=== PATIENT | female | born 1960 | race Caucasian/White ===

== ENCOUNTER → 2016-07-09 | Outpatient (CLI) | payer OTHER ==
--- NOTE | 2016-07-09 15:38 | XR ---
EXAMINATION TYPE: XR foot limited RT DATE OF EXAM: 07/09/2016 3:33 PM CLINICAL HISTORY: Right foot pain for years. TECHNIQUE: Frontal, lateral, and oblique images of the right foot are obtained. COMPARISON: None FINDINGS: There is no acute fracture/dislocation evident in the right foot. There is marked flexion and varus positioning of distal third through fifth toes. There is mild hallux valgus positioning fir st metatarsophalangeal joint. There is severe spurring along dorsal surface tarsal navicular articula tion with the anterior talus. There is some spurring laterally at cuboid articulation with the calcan eus. Small to moderate size inferior calcaneal spur is present. The overlying soft tissue appears un remarkable. IMPRESSION: There is degenerative change in right foot as detailed above
== END | disposition home or self-care (01) ==
LOC: RADXRMAIN 15:19
PROVIDERS: ATTEND Family Medicine
DX: M25.871 Other specified joint disorders, right ankle and foot (principal); M79.671 Pain in right foot

== ENCOUNTER → 2016-10-07 | Outpatient (CLI) | payer OTHER ==
--- NOTE | 2016-10-08 09:15 | MM ---
Reason for exam: screening (asymptomatic). Last mammogram was performed 1 year and 2 months ago. History: Patient is postmenopausal and is nulliparous. Physical Findings: A clinical breast exam by your physician is recommended on an annual basis and results should be correlated with mammographic findings. MG Screening Mammo w CAD Bilateral CC and MLO view(s) were taken. Prior study comparison: August 07, 2015, bilateral MG screening mammo w CAD. There are scattered fibroglandular densities. There is no discrete abnormality. No significant changes when compared with prior studies. ASSESSMENT: Negative, BI-RAD 1 RECOMMENDATION: Routine screening mammogram of both breasts in 1 year.
== END | disposition home or self-care (01) ==
LOC: RADMAMWWP 10:41
PROVIDERS: ATTEND Family Medicine
DX: Z12.31 Encounter for screening mammogram for malignant neoplasm of breast (principal)

== ENCOUNTER 2018-04-25 23:58 | Observation (INO) | payer OTHER ==
[2018-04-26] MEDS ORDERED: ASPIRIN 81 MG PO STA (00:07)
[2018-04-26] MEDS ORDERED: SODIUM CHLORIDE 0.9% 1,000 ML IV STA (00:07)
[2018-04-26 00:46] LABS: Basophils % (A) 0 %; Eosinophils # (A) 0.1 k/uL (0-0.7); Eosinophils % (A) 1 %; HCT 37.2 % (34.0-46.0); HGB 12.1 gm/dL (11.4-16.0); Lymphocytes # (A) 1.1 k/uL (1.0-4.8); Lymphocytes % (A) 12 %; MCH 30.4 pg (25.0-35.0); MCHC 32.6 g/dL (31.0-37.0); MCV 93.2 fL (80.0-100.0); Mean Platelet Volume 8.1; Monocytes # (A) 0.3 k/uL (0-1.0); Monocytes % (A) 4 %; Neutrophils # (A) 7.9 k/uL (1.3-7.7); Neutrophils % (A) 82 %; Platelet Count 312 k/uL (150-450); RBC 3.99 m/uL (3.80-5.40); RDW 12.8 % (11.5-15.5); WBC 9.7 k/uL (3.8-10.6)
[2018-04-26 00:55] LABS: Anion Gap 9 mmol/L; Calcium 9.7 mg/dL (8.4-10.2); Carbon Dioxide 22 mmol/L (22-30); Chloride 110 mmol/L (98-107); Glucose 109 mg/dL (74-99); Sodium 141 mmol/L (137-145); Total Bilirubin 0.7 mg/dL (0.2-1.3); Total Protein 7.2 g/dL (6.3-8.2)
[2018-04-26] MEDS ORDERED: METOPROLOL TARTRATE 25 MG TAB PO STA (00:55)
--- NOTE | 2018-04-26 00:55 | ED ---
Arrhythmia/Palpitations HPI - General Chief Complaint: Arrhythmia/Palpitations Stated Complaint: Arrhythmia Time Seen by Provider: 04/26/18 00:00 Source: EMS Mode of arrival: EMS Limitations: no limitations - History of Present Illness Initial Comments: Cee is a 57-year-old female with a history of anxiety who presents the emergency department today via EMS after she contacted them concerned she was having an anxiety attack. Patient reports that on Wednesday she had a fall in which she fell to her left side and broke her hand. She subsequent followed up with orthopedics and had a cast placed on the left hand. Patient return to work today and does report that she is feeling quite exhausted. After work she was sitting in her car when she began to feel that her heart was racing. Patient thought she was having a panic attack but wouldn't subside so she called 911. EMS found the patient to have intermittent paroxysmal SVT with heart rates ranging from sinus rhythm with a rate in the 80s to SVT with a rate in the 180s. Patient's heart would begin to race she would take a deep breath or cough in her SVT would resolve. However happen intermittently during their assessment and transport to the hospital. Patient denies any chest pain or shortness of breath. The patient denies any previous cardiac history. - Related Data Home Medications Medication Instructions Recorded Confirmed Aspirin 650 mg PO DAILY PRN 08/19/15 08/19/15 [employer] Blood Builder 1 tab PO QAM 08/19/15 08/19/15 Multivitamins, Thera [Multivitamin] 1 tab PO QAM 08/19/15 08/19/15 Vits A,C,E/Lutein/Minerals 1 each PO QAM 08/19/15 08/19/15 [Ocuvite with Lutein Tablet] Allergies Allergy/AdvReac Type Severity Reaction Status Date / Time corn Allergy Anaphylaxis Verified 04/26/18 00:21 peanut Allergy Nausea & Verified 04/26/18 00:21 Vomiting & Diarrhea pollen extracts Allergy Rash/Hives Verified 04/26/18 00:21 ibuprofen AdvReac Unknown Verified 04/26/18 00:21 dust mites Allergy Rash/Hives Uncoded 04/26/18 00:21 wild rice Allergy Nausea & Uncoded 04/26/18 00:21 Vomiting & Diarrhea Review of Systems ROS Statement: Those systems with pertinent positive or pertinent negative responses have been documented in the HPI. ROS Other: All systems not noted in ROS Statement are negative. Past Medical History Past Medical History: No Reported History Additional Past Medical History / Comment(s): vertigo X 1 History of Any Multi-Drug Resistant Organisms: None Reported Past Surgical History: Appendectomy, Hysterectomy Additional Past Surgical History / Comment(s): sx: ganglion cyst & scar tissue removed from right hand Past Anesthesia/Blood Transfusion Reactions: Family History of Problems w/ Anesthesia Past Psychological History: Anxiety Smoking Status: Former smoker Past Alcohol Use History: Rare Past Drug Use History: None Reported - Past Family History Father Family Medical History: Cancer, Musculoskeletal Disorder, Neurologic Disorder Additional Family Medical History / Comment(s): CA: colon & leukemia (cll). parkinson Mother Family Medical History: Diabetes Mellitus, Osteoarthritis (OA) Additional Family Medical History / Comment(s): neuropathy. grandmother: brain cancer General Exam - General Exam Comments Initial Comments: Physical Exam GENERAL: Patient is well-developed and well-nourished. Patient is nontoxic and well- hydrated and is in no distress. HENT: Normocephalic, Atraumatic. EYES: PERRL, EOMI PULMONARY: Unlabored respirations. No audible rales rhonchi or wheezing was noted. CARDIOVASCULAR: There is a regular rate and rhythm without any murmurs gallops or rubs. ABDOMEN: Soft and nontender with normal bowel sounds. SKIN: Skin is clear with no lesions or rashes and otherwise unremarkable. : Deferred NEUROLOGIC: Patient is alert and oriented x3. Moving all extremities spontaneously MUSCULOSKELETAL: Left hand and thumb spica cast, fingers somewhat edematous patient reports that this is due to her noncompliance with her sling. She has normal neurovascular exam PSYCHIATRIC: Normal psychiatric evaluation. Limitations: no limitations Limitations: no limitations Course Vital Signs 04/26/18 04/26/18 00:03 01:38 Temperature 98.0 F Pulse Rate 97 84 Respiratory 16 16 Rate Blood Pressure 129/64 96/55 O2 Sat by Pulse 97 Oximetry EKG Findings - EKG Comments: EKG Findings:: EKG obtained at 12:12 AM, rate is 150 rhythm appears to be SVT, this is a narrow complex regular tachycardia which resolves and terminates into a sinus rhythm. Normal axis, ormal intervals, no acute ST elevations or depressions no evidence of acute ischemia or infarction. EKG obtained at 12:13 AM, rate is 99, rhythm is sinus there is noted be significant sinus arrhythmia with short 5 beats of apparent SVT. There is normal axis, normal intervals, VT 172, curettes 82, QTc is 431. In no acute ST elevations or depressions no evidence of ischemia or infarction. Rhythm strip obtained at 12:14 AM, rhythm strip is consistent with SVT with a rate of approximately 150-180 which terminates into a sinus rhythm. Medical Decision Making - Medical Decision Making Patient was seen and evaluated, patient was noted to have sinus rhythm with episodes of paroxysmal SVT which resolved spontaneously on the site monitor prior to arrival and at the time of arrival Labs and imaging were ordered By mouth metoprolol was ordered Labs with no significant abnormalities, no significant electrolyte L amount days , TSH within normal limits, troponin I not elevated Patient resting comfortably, results were discussed with patient advised patient of the plan for admission for evaluation by cardiology given that she did have a syncopal episode resulting in injury on Wednesday and is now having episodes of paroxysmal SVT. Patient is agreeable to this plan. Patient care was discussed with patient's primary care physician Dr. Clay who agrees with plan for admission with a consult to cardiology. - Lab Data Result diagrams: 04/26/18 00:29 04/26/18 00:29 Lab Results 04/26/18 04/26/18 04/26/18 Range/Units 00:29 00:29 00:29 WBC 9.7 (3.8-10.6) k/uL RBC 3.99 (3.80-5.40) m/uL Hgb 12.1 (11.4-16.0) gm/dL Hct 37.2 (34.0-46.0) % MCV 93.2 (80.0-100.0) fL MCH 30.4 (25.0-35.0) pg MCHC 32.6 (31.0-37.0) g/dL RDW 12.8 (11.5-15.5) % Plt Count 312 (150-450) k/uL Neutrophils % 82 % Lymphocytes % 12 % Monocytes % 4 % Eosinophils % 1 % Basophils % 0 % Neutrophils # 7.9 H (1.3-7.7) k/uL Lymphocytes # 1.1 (1.0-4.8) k/uL Monocytes # 0.3 (0-1.0) k/uL Eosinophils # 0.1 (0-0.7) k/uL Basophils # 0.0 (0-0.2) k/uL PT (9.0-12.0) sec INR (<1.2) APTT (22.0-30.0) sec Sodium 141 (137-145) mmol/L Potassium 4.6 (3.5-5.1) mmol/L Chloride 110 H (98-107) mmol/L Carbon Dioxide 22 (22-30) mmol/L Anion Gap 9 mmol/L BUN 20 H (7-17) mg/dL Creatinine 0.64 (0.52-1.04) mg/dL Est GFR (CKD-EPI)AfAm >90 (>60 ml/min/1.73 sqM) Est GFR (CKD-EPI)NonAf >90 (>60 ml/min/1.73 sqM) Glucose 109 H (74-99) mg/dL Calcium 9.7 (8.4-10.2) mg/dL Magnesium 1.9 (1.6-2.3) mg/dL Total Bilirubin 0.7 (0.2-1.3) mg/dL AST 29 (14-36) U/L ALT 21 (9-52) U/L Alkaline Phosphatase 72 (38-126) U/L Total Creatine Kinase 116 (30-135) U/L CK-MB (CK-2) 1.6 (0.0-2.4) ng/mL CK-MB (CK-2) Rel Index 1.4 Troponin I <0.012 (0.000-0.034) ng/mL Total Protein 7.2 (6.3-8.2) g/dL Albumin 4.0 (3.5-5.0) g/dL TSH 3.370 (0.465-4.680) mIU/L 04/26/18 Range/Units 00:29 WBC (3.8-10.6) k/uL RBC (3.80-5.40) m/uL Hgb (11.4-16.0) gm/dL Hct (34.0-46.0) % MCV (80.0-100.0) fL MCH (25.0-35.0) pg MCHC (31.0-37.0) g/dL RDW (11.5-15.5) % Plt Count (150-450) k/uL Neutrophils % % Lymphocytes % % Monocytes % % Eosinophils % % Basophils % % Neutrophils # (1.3-7.7) k/uL Lymphocytes # (1.0-4.8) k/uL Monocytes # (0-1.0) k/uL Eosinophils # (0-0.7) k/uL Basophils # (0-0.2) k/uL PT 10.5 (9.0-12.0) sec INR 1.0 (<1.2) APTT 22.5 (22.0-30.0) sec Sodium (137-145) mmol/L Potassium (3.5-5.1) mmol/L Chloride (98-107) mmol/L Carbon Dioxide (22-30) mmol/L Anion Gap mmol/L BUN (7-17) mg/dL Creatinine (0.52-1.04) mg/dL Est GFR (CKD-EPI)AfAm (>60 ml/min/1.73 sqM) Est GFR (CKD-EPI)NonAf (>60 ml/min/1.73 sqM) Glucose (74-99) mg/dL Calcium (8.4-10.2) mg/dL Magnesium (1.6-2.3) mg/dL Total Bilirubin (0.2-1.3) mg/dL AST (14-36) U/L ALT (9-52) U/L Alkaline Phosphatase (38-126) U/L Total Creatine Kinase (30-135) U/L CK-MB (CK-2) (0.0-2.4) ng/mL CK-MB (CK-2) Rel Index Troponin I (0.000-0.034) ng/mL Total Protein (6.3-8.2) g/dL Albumin (3.5-5.0) g/dL TSH (0.465-4.680) mIU/L Disposition Clinical Impression: Supraventricular tachycardia Disposition: ADMITTED IP TO THIS HOSP Referrals: Salo Clay MD [Primary Care Provider] - 1-2 days
[2018-04-26 00:57] LABS: Partial Thromboplastin Time 22.5 sec (22.0-30.0); Prothrombin Time 10.5 sec (9.0-12.0)
[2018-04-26 01:00] LABS: ALT 21 U/L (9-52); AST 29 U/L (14-36); Alkaline Phosphatase 72 U/L (38-126); Blood Urea Nitrogen 20 mg/dL (7-17); Magnesium 1.9 mg/dL (1.6-2.3); Potassium 4.6 mmol/L (3.5-5.1)
[2018-04-26 01:05] LABS: Creatine Kinase 116 U/L (30-135)
--- NOTE | 2018-04-26 01:07 | XR ---
EXAMINATION TYPE: XR chest 2V DATE OF EXAM: 04/26/2018 COMPARISON: NONE HISTORY: Chest pain TECHNIQUE: Frontal and lateral views of the chest are obtained. FINDINGS: There is no heart failure nor confluent pneumonic infiltrate. Costophrenic angles are tameka r. There are chest leads. The bony thorax is intact. IMPRESSION: No active cardiopulmonary disease. Normal heart.
[2018-04-26 01:19] LABS: Creatine Kinase MB 1.6 ng/mL (0.0-2.4)
[2018-04-26 01:21] LABS: Troponin I <0.012 ng/mL (0.000-0.034)
[2018-04-26] MEDS ORDERED: NALOXONE 0.4 MG/ML 1 ML VIAL IV PRN (02:10)
[2018-04-26 07:22] LABS: Creatine Kinase 76 U/L (30-135)
[2018-04-26 07:35] LABS: Creatine Kinase MB 1.2 ng/mL (0.0-2.4); Troponin I <0.012 ng/mL (0.000-0.034)
--- NOTE | 2018-04-26 10:35 | CONS ---
CONSULTATION CHIEF COMPLAINT: Near syncope. Cee is a 57-year-old lady with no significant past medical history who presented to hospital with symptoms of dizziness and not feeling well. This started yesterday morning. She continued to work. She felt unwell, had almost felt like she was going to have an anxiety attack. Patient had a fall and broke her left arm last week, but this was not a syncopal event. When she presented to the ER, she was in SVT with heart rates in the 180s, which gradually resolved on its own. At the time of my evaluation, she is in sinus rhythm and is free of significant cardiac symptoms. PAST MEDICAL HISTORY: Negative for hypertension, diabetes, dyslipidemia. MEDICATIONS: None. ALLERGIES: As charted. FAMILY HISTORY: Significant for CAD in her mother. SOCIAL HISTORY: Negative for smoking, EtOH abuse or drug abuse. REVIEW OF SYSTEMS: HEENT is unremarkable. Cardiac as described above. RESPIRATORY: Negative. GI: Negative. GENITOURINARY: Negative. ALLERGY/IMMUNOLOGY: Negative. SKIN: Negative. MUSCULOSKELETAL: Negative. ENDOCRINE: Negative. DERMATOLOGICAL: Negative. CONSTITUTIONAL Negative. ONCOLOGICAL: Negative. The rest of the system review is not relevant. PHYSICAL EXAM: Patient is comfortable at rest. Afebrile. Vital signs are stable. There is no jugular venous distention. Chest exam reveals good air entry bilaterally. Heart exam reveals first and second heart sounds. No gallop. No murmur. Abdomen is soft, nontender. Exam of extremities did not reveal any edema. Peripheral pulses are felt. 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 LABS: Show a hemoglobin of 12.1, platelet count is 312. Potassium is 4.6, creatinine is 0.62. Two sets of troponins are negative. TSH is 3.3. ASSESSMENT: Paroxysmal supraventricular tachycardia. PLAN: Patient is in normal sinus rhythm. I will obtain a 2D echo. If the LV function is normal, patient can be discharged home. I am not going to put her on a beta gracy as her blood pressures are somewhat low. I will re-evaluate her in my office after discharge and decide on further course of action. I talked to her about referral for EP and possible ablation. Will have more discussions about this later. MMODL / IJN: [id number] /
[2018-04-26 13:00] LABS: Creatine Kinase 183 U/L (30-135)
[2018-04-26 13:13] LABS: Creatine Kinase MB 4.3 ng/mL (0.0-2.4); Troponin I <0.012 ng/mL (0.000-0.034)
[2018-04-26 21:08] LABS: Glucose,Whole Blood 91 mg/dL (75-99)
[2018-04-27 04:58] VITALS: RESP 16
[2018-04-27 06:54] LABS: Appearance,Urine Clear (Clear); Bilirubin,Urine Negative (Negative); Blood,Urine Negative (Negative); Color,Urine Light Yellow; Glucose,Urine (UA) Negative (Negative); Ketones,Urine Negative (Negative); Leukocyte Esterase,Urine Negative (Negative); Mucus,Urine Rare /hpf; Nitrite,Urine Negative (Negative); Protein,Urine Negative (Negative); RBC,Urine <1 /hpf (0-5); Specific Gravity,Urine 1.004 (1.001-1.035); Urobilinogen,Urine <2.0 mg/dL (<2.0); WBC,Urine <1 /hpf (0-5)
[2018-04-27 08:44] VITALS: TEMP 97.4
[2018-04-27] MEDS ORDERED: ASPIRIN 325 MG TAB PO SCH (09:00)
--- NOTE | 2018-04-27 09:21 | ECHOF ---
Referral Reason:SVT MEASUREMENTS -------- HEIGHT: 165.1 cm WEIGHT: 73.5 kg BP: 90/66 RVIDd: 2.7 cm (< 3.3) IVSd: 0.9 cm (0.6 - 1.1) LVIDd: 4.7 cm (3.9 - 5.3) LVPWd: 0.8 cm (0.6 - 1.1) IVSs: 1.2 cm LVIDs: 3.1 cm LVPWs: 1.2 cm Ao Diam: 3.3 cm (2.0 - 3.7) AV Cusp: 2.4 cm (1.5 - 2.6) LA Diam: 3.1 cm (2.7 - 3.8) EPSS: 0.3 cm MV E Dejan: 0.72 m/s MV DecT: 205 ms MV A Dejan: 0.48 m/s MV E/A Ratio: 1.50 RAP: 5.00 mmHg RVSP: 19.02 mmHg MV EF SLOPE: 148.13 mm/s (70 - 150) MV EXCURSION: 2.22 cm (> 18.000) FINDINGS -------- Sinus rhythm. This was a technically difficult study with suboptimal views. The left ventricular size is normal. Left ventricular wall thickness is normal. Overall left vent ricular systolic function is normal with, an EF between 55 - 60 %. The right ventricle is normal in size and function. Normal LA size by volume 22+/-6 ml/m2. The right atrium is normal in size. 3 ml of Lumason was utilized for enhancement of images. Aortic valve is trileaflet and is mildly thickened. There is no evidence of aortic regurgitation. There is no evidence of aortic stenosis. The mitral valve leaflets are mildly thickened. There is trace to mild mitral regurgitation. Trace tricuspid regurgitation present. Right ventricular systolic pressure is normal at < 35 mmHg. There is no evidence of pulmonary hypertension. Trace/mild (physiologic) pulmonic regurgitation. The aortic root size is normal. Normal inferior vena cava with normal inspiratory collapse consistent with estimated right atrial pre ssure of 5 mmHg. There is no pericardial effusion. CONCLUSIONS -------- 1. Sinus rhythm. 2. This was a technically difficult study with suboptimal views. 3. The left ventricular size is normal. 4. Left ventricular wall thickness is normal. 5. Overall left ventricular systolic function is normal with, an EF between 55 - 60 %. 6. Normal LA size by volume 22+/-6 ml/m2. 7. 3 ml of Lumason was utilized for enhancement of images. 8. Aortic valve is trileaflet and is mildly thickened. 9. The mitral valve leaflets are mildly thickened. 10. There is trace to mild mitral regurgitation. 11. Trace tricuspid regurgitation present. 12. Right ventricular systolic pressure is normal at < 35 mmHg. 13. There is no evidence of pulmonary hypertension. 14. Trace/mild (physiologic) pulmonic regurgitation. 15. The aortic root size is normal. 16. There is no pericardial effusion. RESOURCE ENGINEER: Alen Wu RDCS
[2018-04-27 11:44] VITALS: BP 96/67; PULSE 78
[2018-04-27] MEDS ORDERED: METOPROLOL SUCCINATE (ER) 25 MG TAB.ER.24H PO SCH (12:15)
--- NOTE | 2018-04-27 12:18 | P.PN ---
Subjective Progress Note Date: 04/27/18 This is a 57-year-old patient with no significant past medical history presented to the hospital with symptoms of dizziness and generally not feeling well. She was seen in consultation yesterday by Dr. Ro, in the emergency room patient was in SVT with a heart rate in the 180s which collaterally resolved on its own, she has remained since in normal sinus rhythm. Patient has no prior history of hypertension, no diabetes. She is a nonsmoker. Time of my examination this morning, she remains in a normal sinus rhythm. Blood pressure 100/60 with a heart rate in the 70s. Objective - Vital Signs Vital signs: Vital Signs Temp 97.4 F L 04/27/18 08:35 Pulse 78 04/27/18 11:30 Resp 16 04/27/18 11:30 BP 96/67 04/27/18 11:30 Pulse Ox 97 04/27/18 11:30 Intake & Output 04/26/18 04/27/18 04/27/18 18:59 06:59 18:59 Intake Total 340 20 240 Output Total 1 900 Balance 339 -880 240 Weight 75.3 kg Intake: IV 20 0.9 20 Oral 340 240 Output: Urine 1 900 Other: # Voids 2 - Exam PHYSICAL EXAMINATION: GENERAL: 57-year-old female in no acute distress at the time of my examination HEENT: Head is atraumatic, normocephalic. Pupils equal, round. Sclera anicteric. Conjunctiva are clear. Mucous membranes of the mouth are moist. Neck is supple. There is no elevated jugular venous pressure. No carotid bruit is heard. HEART EXAMINATION: Heart S1, S2 normal. No murmur or gallop heard. CHEST EXAMINATION: Lungs are clear to auscultation and precussion. No chest wall tenderness is noted on palpation or with deep breathing. ABDOMEN: Soft, nontender. Bowel sounds are heard. No organomegaly noted. EXTREMITIES: 2+ peripheral pulses with no evidence of peripheral edema and no calf tenderness noted. NEUROLOGIC patient is awake, alert and oriented 3 . . - Labs CBC & Chem 7: 04/26/18 00:29 04/26/18 00:29 Labs: Abnormal Lab Results - Last 24 Hours (Table) 04/26/18 04/27/18 Range/Units 12:04 01:30 Total Creatine Kinase 183 H (30-135) U/L CK-MB (CK-2) 4.3 H (0.0-2.4) ng/mL Urine Mucus Rare H (None) /hpf Microbiology - Last 24 Hours (Table) 04/27/18 01:30 Urine Culture - Preliminary Urine,Voided Assessment and Plan Plan: Assessment and plan #1 supraventricular tachycardia, echo revealed a normal left ventricular systolic function. #2 cardiac risk factors negative for hypertension, no diabetes, no hyperlipidemia, nonsmoker. Plan From cardiology's perspective, patient may be able to be discharged home today. We will start her on some Toprol XL today, make a follow-up appointment to see Dr. Ro back in the office in 4 weeks. DNP note has been reviewed, I agree with a documented findings and plan of care. Patient was seen and examined.
--- NOTE | 2018-04-27 14:49 | HP ---
HISTORY AND PHYSICAL CHIEF COMPLAINT: A 57-year-old white female who came in to the emergency room, thought she was having an anxiety attack. She was found to have severe SVT for which was treated in the emergency room. She is admitted for monitoring. Home medicines include just vitamins. Allergies are to foods and DUST MITES with RICE, IBUPROFEN, PEANUTS, CORN. PAST MEDICAL HISTORY: History of vertigo, anxiety. A 14-point review of systems negative except for mentioned in HPI. SURGERY: Scar removed from her right hand. No smoking. No illicit drugs. FAMILY HISTORY: Father with cancer, musculoskeletal neurologic disorder, colon cancer, leukemia, Parkinson's. Mother diabetes mellitus, osteoarthritis. PHYSICAL EXAM: VITAL SIGNS: Stable. Status post SVT treatment/ CARDIOVASCULAR: Possible low blood pressure, systolic is in the 90s in the emergency room. HEAD: Normocephalic, atraumatic. Pupils equal, round, reactive to light. LUNGS: Clear. CARDIOVASCULAR: S1, S2. ABDOMEN: Soft. HEMATOLOGY: Negative Homans. SKIN: Warm and dry. NEUROLOGIC: Alert and orient x3. PSYCH: Fair mood and affect. Temp is 98 as mentioned, O2 saturation at 97, respiratory rate 16 to 18. ASSESSMENT: 1. Supraventricular tachycardia, status post treatment, anxiety, possible low-dose beta gracy if blood pressure will allow us to use it to prevent further recurrences. Otherwise, Cardiology will need to see the patient prior to clearance prior to discharge. 2. Thyroid is in normal range. Please see further orders. MMODL / IJN: [id number] /
== END 2018-04-27 13:59 | disposition home or self-care (01) ==
LOC: EC 23:58 → INTOOBSV 04-26 02:10 → 3SCARD 04-26 02:10 → UNDODISIN 04-27 13:59
PROVIDERS: ADMIT Family Medicine; ATTEND Family Medicine
DX: I47.1 Supraventricular tachycardia (principal); F41.9 Anxiety disorder, unspecified; S62.92XD Unspecified fracture of left hand, subsequent encounter for fracture with routine healing; W19.XXXD Unspecified fall, subsequent encounter; Z79.82 Long term (current) use of aspirin; Z79.899 Other long term (current) drug therapy; Z91.010 Allergy to peanuts; Z88.6 Allergy status to analgesic agent; Z91.048 Other nonmedicinal substance allergy status; Z91.018 Allergy to other foods; Z87.891 Personal history of nicotine dependence; Z90.49 Acquired absence of other specified parts of digestive tract; Z90.710 Acquired absence of both cervix and uterus; Z80.0 Family history of malignant neoplasm of digestive organs; Z80.6 Family history of leukemia; Z80.8 Family history of malignant neoplasm of other organs or systems; Z82.0 Family history of epilepsy and other diseases of the nervous system; Z82.49 Family history of ischemic heart disease and other diseases of the circulatory system; Z83.3 Family history of diabetes mellitus; Z82.61 Family history of arthritis; Z82.69 Family history of other diseases of the musculoskeletal system and connective tissue
CPT/HCPCS: 96360; 96361; 99285; 36415; 93005; 80053; 82550; 82553; 83735; 84443; 84484; 85025; 85610; 85730; 81003; 87086; 71046; G0378 ×2; C8929; Q9950; 93306

== ENCOUNTER 2018-05-22 11:49 | Emergency (ER) | payer OTHER ==
[2018-05-22] MEDS ORDERED: SODIUM CHLORIDE 0.9% 1,000 ML IV STA (12:05)
--- NOTE | 2018-05-22 12:15 | ED ---
General Adult HPI - General Chief complaint: Arrhythmia/Palpitations Stated complaint: Tachycardia Time Seen by Provider: 05/22/18 12:01 Source: patient Mode of arrival: EMS - Related Data Previous Rx's Medication Instructions Recorded Metoprolol Succinate (ER) [Toprol 12.5 mg PO DAILY #30 tab.er.24h 04/27/18 XL] Allergies Allergy/AdvReac Type Severity Reaction Status Date / Time corn Allergy Anaphylaxis Verified 05/22/18 12:31 peanut Allergy Nausea & Verified 05/22/18 12:31 Vomiting & Diarrhea pollen extracts Allergy Rash/Hives Verified 05/22/18 12:31 ibuprofen AdvReac Unknown Verified 05/22/18 12:31 dust mites Allergy Rash/Hives Uncoded 04/26/18 00:21 wild rice Allergy Nausea & Uncoded 04/26/18 00:21 Vomiting & Diarrhea Review of Systems ROS Statement: Those systems with pertinent positive or pertinent negative responses have been documented in the HPI. ROS Other: All systems not noted in ROS Statement are negative. Past Medical History Past Medical History: No Reported History, GERD/Reflux, Osteoarthritis (OA) Additional Past Medical History / Comment(s): Current L hand fracture/casted, arthritis multiple joints, vertigo, high cholesterol which she states she corrected with diet, diverticular disease, pt states she has been told she has a predisposition to glaucoma. History of Any Multi-Drug Resistant Organisms: None Reported Past Surgical History: Appendectomy, Hysterectomy Additional Past Surgical History / Comment(s): R hand ganglion cyst & scar tissue removed, colonoscopy with benign polypectomy Past Anesthesia/Blood Transfusion Reactions: No Reported Reaction Past Psychological History: Anxiety Smoking Status: Former smoker Past Alcohol Use History: None Reported Past Drug Use History: None Reported - Past Family History Father Family Medical History: Cancer, Musculoskeletal Disorder, Neurologic Disorder Additional Family Medical History / Comment(s): CA: colon & leukemia (cll). parkinson Mother Family Medical History: Diabetes Mellitus, Osteoarthritis (OA) Additional Family Medical History / Comment(s): grandmother: brain cancer Course Vital Signs 05/22/18 05/22/18 05/22/18 11:58 11:59 12:00 Temperature 98.8 F Pulse Rate 70 67 68 Pulse Rate [ Director Communications ] Respiratory 16 18 9 L Rate Blood Pressure 118/79 118/79 O2 Sat by Pulse 95 86 L Oximetry 05/22/18 05/22/18 05/22/18 12:30 12:42 13:00 Temperature Pulse Rate 68 76 Pulse Rate [ 74 Director Communications ] Respiratory 8 L 17 Rate Blood Pressure 118/79 118/79 O2 Sat by Pulse 100 Oximetry 05/22/18 05/22/18 05/22/18 13:30 14:00 14:30 Temperature Pulse Rate 61 65 Pulse Rate [ Director Communications ] Respiratory 15 11 L Rate Blood Pressure 100/66 95/68 118/71 O2 Sat by Pulse 100 100 Oximetry 05/22/18 14:35 Temperature Pulse Rate 63 Pulse Rate [ Director Communications ] Respiratory 18 Rate Blood Pressure 118/71 O2 Sat by Pulse 97 Oximetry Medical Decision Making - Medical Decision Making Dictation was produced using [employer] dictation software. please excuse any grammatical, word or spelling errors. Chief Complaint: 57-year-old female presents with palpitations. History of Present Illness: Patient is a 57-year-old female past medical history of paroxysmal supraventricular tachycardia. Patient states she was at [employer] today when at approximately 10 AM patient began noticing symptoms of palpitations. Patient has history of SVT in the past. She does not take any medications for this. She's been instructed to seek medical attention if her symptoms last more than 20 minutes. Patient states she gets this when she is stressed out or upset. Denies any other symptoms at this time. EMS was called. Patient was still tachycardic while under their care. ROS documented in this emergency department record has been reviewed and confirmed by me. Those systems with pertinent positive or negative responses have been documented in the HPI. All other systems are other negative and/or noncontributory. PHYSICAL EXAM: General Impression: Alert and oriented x3, not in acute distress HEENT: Normocephalic atraumatic, extra-ocular movements intact, pupils equal and reactive to light bilaterally, mucous membranes moist. Cardiovascular: Heart regular rate and rhythm, S1&S2 audible, no murmurs, rubs or gallops Chest: Lungs clear to auscultation bilaterally, no rhonchi, no wheeze, no rales Abdomen: Bowel sounds present, abdomen soft, non-tender, non-distended, no organomegaly Musculoskeletal: Pulses present and equal in all extremities, no peripheral edema Motor: Power 5/5 bilaterally, no focal deficits noted Neurological: CN II-XII grossly intact, no focal motor or sensory deficits noted Skin: Intact with no visualized rashes Psych: Normal affect and mood ED course: 57-year-old female past medical history of SVT presents with chief complaint palpitations. Vital signs upon arrival are within except limits. Patient does not appear to be in SVT upon initial evaluation. Prehospital EKG was evaluated showing findings consistent with supraventricular tachycardia. Laboratory evaluation obtained. CBC unremarkable. Coag panel unremarkable. Metabolic panel is unremarkable. No electrolyte derangement. Urinalysis is positive for trace ketones. Patient given intravenous fluids. Patient's episode of SVT is likely caused by dehydration. Patient urged of the significance of maintaining adequate hydration. The patient is a Dr. Orr who agrees that patient's clear for discharge. Patient told to continue her Toprol-XL. She may be a candidate for different antiarrhythmic that can be changed outpatient. Discussed the plan with patient who is understandable and agreeable. EKG interpretation: Ventricular rate 77, normal sinus rhythm, MA interval 136, QRS 92, QTc 437. No MA prolongation, no QTC prolongation, no ST or T-wave changes noted. . Overall, this EKG is unremarkable - Lab Data Result diagrams: 05/22/18 12:06 05/22/18 12:06 Lab Results 05/22/18 05/22/18 05/22/18 Range/Units 12:06 12:06 12:06 WBC 4.5 (3.8-10.6) k/uL RBC 3.87 (3.80-5.40) m/uL Hgb 12.3 (11.4-16.0) gm/dL Hct 35.6 (34.0-46.0) % MCV 92.1 (80.0-100.0) fL MCH 31.8 (25.0-35.0) pg MCHC 34.5 (31.0-37.0) g/dL RDW 12.8 (11.5-15.5) % Plt Count 229 (150-450) k/uL Neutrophils % 67 % Lymphocytes % 25 % Monocytes % 4 % Eosinophils % 2 % Basophils % 0 % Neutrophils # 3.0 (1.3-7.7) k/uL Lymphocytes # 1.1 (1.0-4.8) k/uL Monocytes # 0.2 (0-1.0) k/uL Eosinophils # 0.1 (0-0.7) k/uL Basophils # 0.0 (0-0.2) k/uL PT (9.0-12.0) sec INR (<1.2) APTT (22.0-30.0) sec Sodium 140 (137-145) mmol/L Potassium 4.3 (3.5-5.1) mmol/L Chloride 106 (98-107) mmol/L Carbon Dioxide 23 (22-30) mmol/L Anion Gap 11 mmol/L BUN 17 (7-17) mg/dL Creatinine 0.60 (0.52-1.04) mg/dL Est GFR (CKD-EPI)AfAm >90 (>60 ml/min/1.73 sqM) Est GFR (CKD-EPI)NonAf >90 (>60 ml/min/1.73 sqM) Glucose 102 H (74-99) mg/dL Calcium 9.6 (8.4-10.2) mg/dL Magnesium 1.8 (1.6-2.3) mg/dL Total Bilirubin 0.6 (0.2-1.3) mg/dL AST 22 (14-36) U/L ALT 20 (9-52) U/L Alkaline Phosphatase 78 (38-126) U/L Total Creatine Kinase 128 (30-135) U/L CK-MB (CK-2) 1.3 (0.0-2.4) ng/mL CK-MB (CK-2) Rel Index 1.0 Troponin I <0.012 (0.000-0.034) ng/mL Total Protein 7.5 (6.3-8.2) g/dL Albumin 4.4 (3.5-5.0) g/dL TSH 2.270 (0.465-4.680) mIU/L Urine Color Urine Appearance (Clear) Urine pH (5.0-8.0) Ur Specific [place] (1.001-1.035) Urine Protein (Negative) Urine Glucose (UA) (Negative) Urine Ketones (Negative) Urine Blood (Negative) Urine Nitrite (Negative) Urine Bilirubin (Negative) Urine Urobilinogen (<2.0) mg/dL Ur Leukocyte Esterase (Negative) Urine RBC (0-5) /hpf Urine WBC (0-5) /hpf Ur Squamous Epith Cells (0-4) /hpf Urine Mucus (None) /hpf 05/22/18 05/22/18 Range/Units 12:06 14:25 WBC (3.8-10.6) k/uL RBC (3.80-5.40) m/uL Hgb (11.4-16.0) gm/dL Hct (34.0-46.0) % MCV (80.0-100.0) fL MCH (25.0-35.0) pg MCHC (31.0-37.0) g/dL RDW (11.5-15.5) % Plt Count (150-450) k/uL Neutrophils % % Lymphocytes % % Monocytes % % Eosinophils % % Basophils % % Neutrophils # (1.3-7.7) k/uL Lymphocytes # (1.0-4.8) k/uL Monocytes # (0-1.0) k/uL Eosinophils # (0-0.7) k/uL Basophils # (0-0.2) k/uL PT 10.3 (9.0-12.0) sec INR 1.0 (<1.2) APTT 23.1 (22.0-30.0) sec Sodium (137-145) mmol/L Potassium (3.5-5.1) mmol/L Chloride (98-107) mmol/L Carbon Dioxide (22-30) mmol/L Anion Gap mmol/L BUN (7-17) mg/dL Creatinine (0.52-1.04) mg/dL Est GFR (CKD-EPI)AfAm (>60 ml/min/1.73 sqM) Est GFR (CKD-EPI)NonAf (>60 ml/min/1.73 sqM) Glucose (74-99) mg/dL Calcium (8.4-10.2) mg/dL Magnesium (1.6-2.3) mg/dL Total Bilirubin (0.2-1.3) mg/dL AST (14-36) U/L ALT (9-52) U/L Alkaline Phosphatase (38-126) U/L Total Creatine Kinase (30-135) U/L CK-MB (CK-2) (0.0-2.4) ng/mL CK-MB (CK-2) Rel Index Troponin I (0.000-0.034) ng/mL Total Protein (6.3-8.2) g/dL Albumin (3.5-5.0) g/dL TSH (0.465-4.680) mIU/L Urine Color Light Yellow Urine Appearance Clear (Clear) Urine pH 5.0 (5.0-8.0) Ur Specific [place] 1.007 (1.001-1.035) Urine Protein Negative (Negative) Urine Glucose (UA) Negative (Negative) Urine Ketones Trace H (Negative) Urine Blood Moderate H (Negative) Urine Nitrite Negative (Negative) Urine Bilirubin Negative (Negative) Urine Urobilinogen <2.0 (<2.0) mg/dL Ur Leukocyte Esterase Trace H (Negative) Urine RBC 1 (0-5) /hpf Urine WBC 1 (0-5) /hpf Ur Squamous Epith Cells 1 (0-4) /hpf Urine Mucus Rare H (None) /hpf Disposition Clinical Impression: Supraventricular tachycardia Disposition: HOME SELF-CARE Condition: Good Instructions (If sedation given, give patient instructions): Heart Palpitations (ED) Is patient prescribed a controlled substance at d/c from ED?: No Referrals: Salo Clay MD [Primary Care Provider] - 1-2 days Juan R Olivarez MD [STAFF PHYSICIAN] - 1-2 days Time of Disposition: 15:36
[2018-05-22 12:42] LABS: Basophils % (A) 0 %; Eosinophils # (A) 0.1 k/uL (0-0.7); Eosinophils % (A) 2 %; HCT 35.6 % (34.0-46.0); HGB 12.3 gm/dL (11.4-16.0); Lymphocytes # (A) 1.1 k/uL (1.0-4.8); Lymphocytes % (A) 25 %; MCH 31.8 pg (25.0-35.0); MCHC 34.5 g/dL (31.0-37.0); MCV 92.1 fL (80.0-100.0); Mean Platelet Volume 8.1; Monocytes # (A) 0.2 k/uL (0-1.0); Monocytes % (A) 4 %; Neutrophils % (A) 67 %; Platelet Count 229 k/uL (150-450); RBC 3.87 m/uL (3.80-5.40); RDW 12.8 % (11.5-15.5); WBC 4.5 k/uL (3.8-10.6)
[2018-05-22 12:55] LABS: ALT 20 U/L (9-52); AST 22 U/L (14-36); Albumin 4.4 g/dL (3.5-5.0); Alkaline Phosphatase 78 U/L (38-126); Anion Gap 11 mmol/L; Blood Urea Nitrogen 17 mg/dL (7-17); Calcium 9.6 mg/dL (8.4-10.2); Carbon Dioxide 23 mmol/L (22-30); Chloride 106 mmol/L (98-107); Glucose 102 mg/dL (74-99); Magnesium 1.8 mg/dL (1.6-2.3); Partial Thromboplastin Time 23.1 sec (22.0-30.0); Potassium 4.3 mmol/L (3.5-5.1); Prothrombin Time 10.3 sec (9.0-12.0); Sodium 140 mmol/L (137-145); Total Bilirubin 0.6 mg/dL (0.2-1.3); Total Protein 7.5 g/dL (6.3-8.2)
--- NOTE | 2018-05-22 12:56 | XR ---
EXAMINATION TYPE: XR chest 2V DATE OF EXAM: 05/22/2018 COMPARISON: 04/26/2018 HISTORY: Shortness of breath TECHNIQUE: Frontal and lateral views of the chest are obtained. FINDINGS: Scattered senescent parenchymal changes noted. No evidence for infiltrate. No evidence for atelectasis. Heart size is stable. Mediastinal structures are stable and grossly unremarkable. No evidence for hilar prominence. Degenerative changes dorsal spine. IMPRESSION: 1. No evidence for acute pulmonary disease.
[2018-05-22 13:06] LABS: Creatine Kinase 128 U/L (30-135)
[2018-05-22 13:19] LABS: Creatine Kinase MB 1.3 ng/mL (0.0-2.4); Troponin I <0.012 ng/mL (0.000-0.034)
[2018-05-22 14:49] LABS: Appearance,Urine Clear (Clear); Bilirubin,Urine Negative (Negative); Blood,Urine Moderate (Negative); Color,Urine Light Yellow; Glucose,Urine (UA) Negative (Negative); Ketones,Urine Trace (Negative); Leukocyte Esterase,Urine Trace (Negative); Mucus,Urine Rare /hpf; Nitrite,Urine Negative (Negative); Protein,Urine Negative (Negative); RBC,Urine 1 /hpf (0-5); Specific Gravity,Urine 1.007 (1.001-1.035); Squamous Epithelial Cell,Urine 1 /hpf (0-4); Urobilinogen,Urine <2.0 mg/dL (<2.0)
[2018-05-22 15:50] VITALS: BP 105/69; PULSE 64; RESP 16; TEMP 98.1
== END 2018-05-22 16:26 | disposition home or self-care (01) ==
LOC: EC 11:49
DX: I47.1 Supraventricular tachycardia (principal); Z79.899 Other long term (current) drug therapy; Z91.010 Allergy to peanuts; Z91.018 Allergy to other foods; Z88.6 Allergy status to analgesic agent; Z91.09 Other allergy status, other than to drugs and biological substances; Z87.891 Personal history of nicotine dependence
CPT/HCPCS: 36415; 71046; 80053; 81001; 82550; 82553; 83735; 84443; 84484; 85025; 85610; 85730; 93005; 96360; 96361; 99285

== ENCOUNTER 2019-05-07 10:35 | Emergency (ER) | payer OTHER ==
[2019-05-07] MEDS ORDERED: ACETAMINOPHEN TAB 500 MG TAB PO STA (10:50)
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
[2019-05-07 11:00] VITALS: RESP 20
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
[2019-05-07 12:55] VITALS: BP 103/77; PULSE 65; TEMP 99
== END 2019-05-07 12:49 | disposition home or self-care (01) ==
LOC: EC 10:35
DX: S39.012A Strain of muscle, fascia and tendon of lower back, initial encounter (principal); Z87.891 Personal history of nicotine dependence; Z91.010 Allergy to peanuts; Z91.018 Allergy to other foods; Z91.048 Other nonmedicinal substance allergy status; Z88.6 Allergy status to analgesic agent; V89.2XXA Person injured in unspecified motor-vehicle accident, traffic, initial encounter; Y92.410 Unspecified street and highway as the place of occurrence of the external cause
CPT/HCPCS: 72110; 72170; 99284

== ENCOUNTER → 2021-09-11 | Outpatient (CLI) | payer OTHER ==
--- NOTE | 2021-09-12 14:47 | MM ---
Reason for Exam: Screening (asymptomatic). Last mammogram was performed 4 year(s) and 11 month(s) ago. Patient History: Menarche at age 9. Patient has no children. Hysterectomy at age 45. Postmenopausal. Patient used Unspecified Hormone for 5 years. Risk Values: Inez 5 year model risk: 1.9%. NCI Lifetime model risk: 8.1%. Film Views: Bilateral CC views were taken. Bilateral MLO views were taken. Prior Study Comparison: 08/07/2015 Bilateral Screening Mammogram, [facility]. 10/07/2016 Bilateral Screening Mammogram, [facility]. Tissue Density: There are scattered fibroglandular densities. Findings: Analyzed By CAD. Asymmetric density is present in the upper aspect of the middle portion of the right breast seen better on the mediolateral oblique view, approximately 7 cm from the nipple. Overall Assessment: Incomplete: need additional imaging evaluation, BI-RAD 0 Management: Diagnostic Breast Ultrasound of the right breast. A clinical breast exam by your physician is recommended on an annual basis and results should be correlated with mammographic findings. Electronically signed and approved by: Ajay Ogden M.D. Radiologis
== END | disposition home or self-care (01) ==
LOC: RADMAMWWP 09:27
DX: Z12.31 Encounter for screening mammogram for malignant neoplasm of breast (principal); Z78.0 Asymptomatic menopausal state
CPT/HCPCS: 77067

== ENCOUNTER → 2021-09-17 | Outpatient (CLI) | payer OTHER ==
--- NOTE | 2021-09-17 15:28 | USB ---
Reason for Exam: Additional evaluation requested from abnormal screening. Patient History: Menarche at age 9. Patient has no children. Hysterectomy at age 45. Postmenopausal. Patient used Unspecified Hormone for 5 years. Risk Values: Inez 5 year model risk: 1.9%. NCI Lifetime model risk: 8.1%. Technique: Method: Targeted. Prior Study Comparison: 08/07/2015 Bilateral Screening Mammogram, [facility]. 10/07/2016 Bilateral Screening Mammogram, [facility]. 09/11/2021 Bilateral MG screening mammo w CAD, [facility]. Findings: The upper section of the breast of the right breast, the axilla of the right breast and the retroareolar of the right breast were scanned. No solid or cystic masses are identified.. Overall Assessment: Incomplete: need additional imaging evaluation, BI-RAD 0 Management: Diagnostic Mammogram of the right breast. A clinical breast exam by your physician is recommended on an annual basis and results should be correlated with mammographic findings. Electronically signed and approved by: Salo Cordero M.D. Radiologis
--- NOTE | 2021-09-17 15:58 | MM ---
Reason for Exam: Additional evaluation requested from abnormal screening. Last screening mammogram was performed less than 1 month ago. Patient History: Menarche at age 9. Patient has no children. Hysterectomy at age 45. Postmenopausal. Patient used Unspecified Hormone for 5 years. Risk Values: Inez 5 year model risk: 1.9%. NCI Lifetime model risk: 8.1%. Prior Study Comparison: 08/07/2015 Bilateral Screening Mammogram, [facility]. 10/07/2016 Bilateral Screening Mammogram, [facility]. 09/11/2021 Bilateral MG screening mammo w CAD, [facility]. Tissue Density: Right: There are scattered fibroglandular densities. Findings: Analyzed By CAD. Additional compression views demonstrate no definite underlying persistent density on the mammogram. Overall Assessment: Probably benign, BI-RAD 3 Management: Diagnostic Mammogram of the right breast in 6 months. A clinical breast exam by your physician is recommended on an annual basis and results should be correlated with mammographic findings. This exam should not preclude additional follow-up of suspicious palpable abnormalities. Results were given to the patient verbally at the time of exam. Electronically signed and approved by: Salo Cordero M.D. Radiologis
== END | disposition home or self-care (01) ==
LOC: RADUSWWP 14:28
PROVIDERS: ATTEND Family Medicine
DX: R92.8 Other abnormal and inconclusive findings on diagnostic imaging of breast (principal); Z78.0 Asymptomatic menopausal state
CPT/HCPCS: 77065

== ENCOUNTER → 2022-03-16 | Outpatient (CLI) | payer OTHER ==
--- NOTE | 2022-03-16 14:28 | MM ---
Reason for Exam: Follow-up at short interval from prior study. Last screening mammogram was performed 6 month(s) ago. Patient History: Menarche at age 9. Patient has no children. Hysterectomy at age 45. Postmenopausal. Patient used Unspecified Hormone for 5 years. Risk Values: Inez 5 year model risk: 1.9%. NCI Lifetime model risk: 8.1%. Prior Study Comparison: 10/07/2016 Bilateral Screening Mammogram, [facility]. 09/11/2021 Bilateral MG screening mammo w CAD, [facility]. 09/17/2021 Right MG work up mamm w CAD RT, [facility]. Tissue Density: Right: There are scattered fibroglandular densities. Findings: Analyzed By CAD. Occasional tiny benign peribronchial stations throughout the right breast redemonstrated. Benign-appearing right axillary lymph nodes redemonstrated. No suspicious mass or distortion. Overall Assessment: Benign, BI-RAD 2 Management: Screening Mammogram of both breasts in 6 months. Back on annual schedule. Results were given to the patient verbally at the time of exam. Electronically signed and approved by: Al Jerome M.D.
== END | disposition home or self-care (01) ==
LOC: RADMAMWWP 13:51
DX: D48.61 Neoplasm of uncertain behavior of right breast (principal); Z78.0 Asymptomatic menopausal state
CPT/HCPCS: 77061; 77065

== ENCOUNTER → 2023-02-10 | Outpatient (CLI) | payer OTHER ==
--- NOTE | 2023-02-11 09:47 | MM ---
Reason for Exam: Screening (asymptomatic). Last mammogram was performed 1 year(s) and 5 month(s) ago. Patient History: Menarche at age 9. Patient has no children. Hysterectomy at age 45. Postmenopausal. Patient used Unspecified Hormone for 5 years. Risk Values: Inez 5 year model risk: 2.0%. NCI Lifetime model risk: 7.9%. Prior Study Comparison: 09/11/2021 Bilateral MG screening mammo w CAD, [facility]. 09/17/2021 Right MG work up mamm w CAD RT, [facility]. 03/16/2022 Right MG 3D diag mammo w/cad RT, [facility]. Tissue Density: There are scattered fibroglandular densities. Findings: Analyzed By CAD. There is no suspicious group of microcalcifications or new suspicious mass. Overall Assessment: Negative, BI-RAD 1 Management: Screening Mammogram of both breasts in [address] [facility] will attempt to contact patient to return for supplemental views and ultrasound if indicated. Patient should continue monthly self-breast exams. A clinical breast exam by your physician is recommended on an annual basis. This exam should not preclude additional follow-up of suspicious palpable abnormalities. Note on Inez scores and lifetime risk: 1. A Inez score greater than 3% is considered moderate risk. If this is the case, consider specialist referral to assess eligibility for a risk reducing agent. 2. If overall lifetime risk for the development of breast cancer is 20% or higher, the patient may qualify for future screening with alternating mammogram and breast MRI. Electronically signed and approved by: Kt Mora DO
== END | disposition home or self-care (01) ==
LOC: RADMAMWWP 14:23
DX: Z12.31 Encounter for screening mammogram for malignant neoplasm of breast (principal); Z78.0 Asymptomatic menopausal state
CPT/HCPCS: 77063; 77067

== ENCOUNTER → 2024-02-16 | Outpatient (CLI) | payer MEDICARE, OTHER ==
--- NOTE | 2024-02-17 11:40 | MM ---
Reason for Exam: Screening (asymptomatic). Last screening mammogram was performed 12 month(s) ago. Patient History: Menarche at age 9. Patient has no children. Hysterectomy at age 45. Postmenopausal. Patient used Unspecified Hormone for 5 years. Risk Values: Inez 5 year model risk: 2.0%. NCI Lifetime model risk: 7.6%. Prior Study Comparison: 09/17/2021 Right MG work up mamm w CAD RT, [facility]. 03/16/2022 Right MG 3D diag mammo w/cad RT, [facility]. 02/10/2023 Bilateral MG 3D screening mammo w/cad, [facility]. Tissue Density: There are scattered areas of fibroglandular density. Findings: Analyzed By CAD. Right breast: There is no suspicious group of microcalcifications or new suspicious mass. Left breast: There is no suspicious group of microcalcifications or new suspicious mass. Overall Assessment: Negative, BI-RAD 1 Management: Screening Mammogram of both breasts in [address] [facility] will attempt to contact patient to return for supplemental views and ultrasound if indicated. Patient should continue monthly self-breast exams. A clinical breast exam by your physician is recommended on an annual basis. This exam should not preclude additional follow-up of suspicious palpable abnormalities. Note on Inez scores and lifetime risk: 1. A Inez score greater than 3% is considered moderate risk. If this is the case, consider specialist referral to assess eligibility for a risk reducing agent. 2. If overall lifetime risk for the development of breast cancer is 20% or higher, the patient may qualify for future screening with alternating mammogram and breast MRI. [facility], , 02/17/2024 11:36 AM. Electronically signed and approved by: Kt Mora DO
== END | disposition home or self-care (01) ==
LOC: RADMAMWWP 15:17
PROVIDERS: ATTEND Family Medicine
CPT/HCPCS: 77063; 77067